=== PATIENT | female | born 1955 | race Caucasian/White ===

== ENCOUNTER 2021-01-18 18:32 | Emergency (ER) | payer MEDICAID, OTHER ==
[2021-01-18 18:47] VITALS: BP 147/81; PULSE 56
--- NOTE | 2021-01-18 19:24 | EDM.PDOC ---
ED HPI GENERAL MEDICAL PROBLEM - General Chief Complaint: ENT Problem Stated Complaint: DIZZY HEARING LOSS COLD SWEATS Time Seen by Provider: 01/18/21 18:57 Source of Information: Reports: Patient, RN Notes Reviewed History Limitations: Reports: No Limitations - History of Present Illness INITIAL COMMENTS - FREE TEXT/NARRATIVE: Patient is a 65-year-old female presenting to the emergency department with complaints of muffled hearing in her right ear which began this morning. States it feels like her ear is plugged. This evening while driving home from work she had an episode of mild dizziness which she describes as vertigo symptoms. She has had vertigo in the past and states that this felt like that but not quite as severe. She felt mildly nauseous but did not have any vomiting. She denies any difficulty with walking or gait disturbance. Reports that she could feel a little of the "eye ticking" that she experienced when she had vertigo in the past. Vertigo symptoms are not present at this time. She denies any pain in the ear. States that it just feels like it is plugged. She tried putting eardrops made for cleaning the ear and earlier with little relief. She was seen at [facility] prior to coming here. States they looked in her ear and advised her to come to the ER because it looks normal. Patient reports that she normally wears a headset in that ear all day while she is at work. 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 OPERATOR HYDROFORMER: ear drops at noon - Related Data Allergies Allergy/AdvReac Type Severity Reaction Status Date / Time acetaminophen Allergy Anaphylactic Verified 01/18/21 18:43 [From Tylenol-Codeine #3] Shock codeine phosphate Allergy Anaphylactic Verified 01/18/21 18:43 [From Tylenol-Codeine #3] Shock Home Meds: Home Meds Meclizine HCl [Verticalm] 25 mg PO Q6H PRN #10 tablet 01/18/21 [Rx] Multivitamin [Multiple Vitamins] 1 each PO DAILY 01/18/21 [History] predniSONE [Prednisone] 20 mg PO ASDIRECTED #15 tablet 01/18/21 [Rx] Past Medical History HEENT History: Reports: Impaired Vision, Otitis Media Cardiovascular History: Reports: None Respiratory History: Reports: None Gastrointestinal History: Reports: GERD Genitourinary History: Reports: None 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 Lynne and been cleared. Dermatologic History: Reports: None - Infectious Disease History Infectious Disease History: Reports: Chicken Pox, Measles - Past Surgical History Head Surgeries/Procedures: Reports: None GI Surgical History: Reports: Appendectomy, Bariatric Procedure Other GI Surgeries/Procedures: gastric bypass 4 years ago Female Surgical History: Reports: Breast Reduction Social & Family History - Family History Family Medical History: No Pertinent Family History Endocrine/Metabolic: Reports: Diabetes, type II - Tobacco Use Tobacco Use Status *Q: Never Tobacco User Second Hand Smoke Exposure: No - Caffeine Use Caffeine Use: Reports: None - Recreational Drug Use Recreational Drug Use: No ED ROS ENT - Review of Systems Review Of Systems: See Below Constitutional: Reports: No Symptoms. Denies: Fever, Chills, Weakness HEENT: Reports: Vertigo, Other (Muffled hearing in right ear). Denies: Ear Pain, Eye Discharge Respiratory: Reports: No Symptoms Cardiovascular: Reports: No Symptoms Endocrine: Reports: No Symptoms GI/Abdominal: Reports: Nausea. Denies: Diarrhea, Vomiting : Reports: No Symptoms Musculoskeletal: Reports: No Symptoms Skin: Reports: No Symptoms Neurological: Reports: No Symptoms. Denies: Confusion, Headache, Tingling, Trouble Speaking, Difficulty Walking, Gait Disturbance Psychiatric: Reports: No Symptoms Hematologic/Lymphatic: Reports: No Symptoms Immunologic: Reports: No Symptoms ED EXAM, ENT - Physical Exam Exam: See Below Exam Limited By: No Limitations General Appearance: Alert, WD/WN, No Apparent Distress Ears: Normal External Exam, Normal Canal, Hearing Grossly Normal, Normal TMs, Hearing Loss, TM Fluid. No: Canal Foreign Body, Canal Material, Canal Swelling, TM Bulging, TM Dullness, TM Erythema, TM Perforation, TM Obscured by Cerumen, Cerumen Impaction Respiratory/Chest: No Respiratory Distress, Lungs Clear, Normal Breath Sounds, No Accessory Muscle Use, Chest Non-Tender Cardiovascular: Normal Peripheral Pulses, Regular Rate, Rhythm, No Edema, No Gallop, No JVD, No Murmur, No Rub Neurological: Alert, Oriented, CN II-XII Intact, Normal Cognition, Normal Gait, Normal Reflexes, No Motor/Sensory Deficits Psychiatric: Normal Affect, Normal Mood Skin: Warm, Dry, Intact, Normal Color, No Rash Course - Vital Signs Last Recorded V/S: Last Vital Signs Temp 96.7 F L 01/18/21 18:46 Pulse 56 L 01/18/21 18:46 Resp 18 01/18/21 18:46 BP 147/81 H 01/18/21 18:46 Pulse Ox 98 01/18/21 18:46 - Orders/Labs/Meds Meds: Medications Discontinued Medications Generic Name Dose Route Start Last Admin Trade Name Freq PRN Reason Stop Dose Admin Meclizine HCl 25 mg 01/18/21 19:10 01/18/21 19:16 Meclizine 25 Mg Tab.Chew PO 01/18/21 19:11 25 mg ONETIME ONE Administration - Re-Assessments/Exams Free Text/Narrative Re-Assessment/Exam: Patient is a 65-year-old female presenting to the emergency department with complaints of muffled hearing in her right ear that began this morning. She had some mild symptoms of vertigo on her way home this evening but these have since resolved. She denies any pain in the ear. States that she feels like her ear is plugged. On exam, there is a small amount of fluid behind the TM but the TM is otherwise normal. Based on symptoms and exam, patient is likely suffering from Mnire's disease. She will be started on meclizine as needed for nausea as well as prednisone for treatment of inflammation within the inner ear. I will send referral to Dr. Leyva, shake splitter, so that she may follow-up if symptoms do not improve. Discussed return precautions. Discharge instructions as documented. Departure - Departure Time of Disposition: 19:24 Disposition: Home, Self-Care 01 Condition: Good Clinical Impression: Meniere disease Qualifiers: Laterality: right Qualified Code(s): H81.01 - Meniere's disease, right ear - Discharge Information *PRESCRIPTION DRUG MONITORING PROGRAM REVIEWED*: No *COPY OF PRESCRIPTION DRUG MONITORING REPORT IN PATIENT JAMES: No Prescriptions: predniSONE [Prednisone] 20 mg PO ASDIRECTED #15 tablet Meclizine HCl [Verticalm] 25 mg PO Q6H PRN #10 tablet PRN Reason: Vertigo Instructions: Meniere Disease Referrals: Farzana Martin MD [Primary Care Provider] - Arjun Leyva MD [Ordering Only Provider] - Forms: ED Department Discharge Additional Instructions: You were seen in the emergency department today for muffled hearing in your right ear as well as mild vertigo symptoms. Exam and history is consistent with a diagnosis of Mnire's disease, which is a build up of fluid in your inner ear. While in the ER, you received a dose of meclizine to help with your vertigo symptoms. You been started on prednisone which is a steroid to decrease the inflammation in your eustacian tube to help the fluid drain. A prescription for meclizine for vertigo symptoms is also been sent. You should begin to have improvement in symptoms within the next 24 to 48 hours. If symptoms fail to improve, a referral has been sent to shake splitter, Dr. Leyva. The number to schedule with him as listed below. If you should experience any new or worsening symptoms, please not hesitate to return to the emergency department for reevaluation. Sepsis Event Note (ED) - Evaluation Sepsis Screening Result: No Definite Risk - Focused Exam Vital Signs: Vital Signs Temp Pulse Resp BP Pulse Ox 01/18/21 18:46 96.7 F L 56 L 18 147/81 H 98
== END 2021-01-18 19:38 | disposition home or self-care (01) ==
LOC: JD.ED 18:32
DX: H81.01 Meniere's disease, right ear (principal); E66.9 Obesity, unspecified; Z68.32 Body mass index [BMI] 32.0-32.9, adult; Z88.6 Allergy status to analgesic agent; Z88.5 Allergy status to narcotic agent
CPT/HCPCS: 99283; A9270